=== PATIENT | female | born 1975 | race Two or more races ===

== ENCOUNTER 2016-12-18 00:20 | Emergency (ER) | payer MEDICAID ==
[2016-12-18] MEDS ORDERED: KETOROLAC TROMETHAMINE 15 MG/ML VIAL ONE (00:56)
[2016-12-18] MEDS ORDERED: LACTATED RINGERS 1,000 ML ONE (00:56)
[2016-12-18 01:16] LABS: ABSOLUTE NEUTROPHIL COUNT 2.9 K/mm3 (1.8-7.7); BASO # 0.1 K/mm3 (0.0-0.2); EOS # 0.1 (0.0-0.5); EOS % 1.3 % (0.9-2.9); HEMATOCRIT 40.4 % (37.0-47.0); HEMOGLOBIN 13.3 gm/l (12.0-16.0); IMM NEUT% 0.6 % (0-1); LYMPH # 3.4 (1.0-4.8); LYMPH % 49.5 % (15-45); MEAN CELL VOLUME 93.1 fl (81.0-99.0); MEAN CORPUSCULAR HEMOGLOBIN 30.6 pg (27.0-31.0); MEAN CORPUSCULAR HGB CONC 32.9 g/dl (33.0-37.0); MEAN PLATELET VOLUME 12.3 fl (7.4-10.4); MONO # 0.4 (0.0-0.8); MONO % 5.5 % (4-12); NEUT % 42.1 % (43-75); PLATELET COUNT 130 K/mm3 (130-400); RED CELL DISTRIBUTION WIDTH 13.1 % (11.5-14.5)
[2016-12-18 01:18] LABS: SPECIFIC GRAVITY 1.015 (1.001-1.030); URINE BILIRUBIN NEGATIVE (NEGATIVE); URINE BLOOD NEGATIVE (NEGATIVE); URINE GLUCOSE (UA) NEGATIVE (NEGATIVE); URINE LEUKOCYTE ESTERASE TRACE (NEGATIVE); URINE NITRITE NEGATIVE (NEGATIVE); URINE PROTEIN NEGATIVE (NEGATIVE); URINE UROBILINOGEN NORMAL (0-1 mg/dl)
[2016-12-18 01:19] LABS: URINE APPEARANCE HAZY; URINE COLOR LIGHT YELLOW
[2016-12-18 01:30] LABS: URINE BACTERIA RARE; URINE RBC 0-2 /hpf
[2016-12-18 01:30] LABS: ALB/GLOB RATIO 1.2 (>1.0); ALBUMIN 3.5 gm/dL (3.5-5.7); CALCIUM 9.6 mg/dL (8.6-10.3)
--- NOTE | 2016-12-18 07:43 | RAD ---
History: Chest discomfort. Comparison: None. Technique: 2 views Findings: The soft tissue and bony structures are unremarkable. The heart size is appropriate. No infiltrate, effusion or pneumothorax is observed. The hilar and mediastinal structures are normal. Impression: 1. A negative 2 view chest
== END 2016-12-18 02:36 | disposition home or self-care (01) ==
LOC: ED 00:20
DX: R07.9 Chest pain, unspecified (principal); M79.622 Pain in left upper arm
CPT/HCPCS: 83690; 85025; 87086; 80053; 81001; 71020; 99284 ×2; 96374; 96361; 93005; J1885; J7120